=== PATIENT | female | born 1945 | race Caucasian/White ===

== ENCOUNTER 2016-05-02 10:26 | Emergency (ER) | payer OTHER ==
[2016-05-02 10:32] VITALS: O2SAT 94
--- NOTE | 2016-05-02 10:44 | EDPHY ---
H & P Time Seen by Provider: 05/02/16 10:38 HPI/ROS: CHIEF COMPLAINT: Head and neck ache. HISTORY OF PRESENT ILLNESS: The patient is a 71 year old female, that flew in from [place] earlier this week, presenting with left sided head and neck ache that started 3 days ago. Her pain is localized to the left base of her skull and radiates into the left side of her neck. The pain is intermittent. Pain worsened with positioning and tends to be aggravated when sitting at her computer. She took 800mg Ibuprofen this morning. No recent chiropractic work. She denies weakness or numbness in her extremities. No ABRAMS, just pain starting at back of skull and in neck. REVIEW OF SYSTEMS: Aside from elements discussed in the HPI, a comprehensive 10-point review of systems was reviewed and is negative. Past Medical/Surgical History: Denies. Social History: Lives in [place], visiting for work. Smoking Status: Never smoked Physical Exam: General Appearance: Alert, no distress Eyes: Pupils equal and round, no conjunctival pallor or injection ENT, Mouth: Mucous membranes moist Neck: Bilateral paraspinous tenderness and tenderness over the occiput Respiratory: Lungs are clear to auscultation Cardiovascular: Regular rate and rhythm Gastrointestinal: Abdomen is soft and non-tender Neurological: Alert, oriented x3, cranial nerves II through XII intact, motor 5 /5, sensory intact to light touch, normal gait Skin: Warm and dry, no rash Extremities: Nontender, no pedal edema Psychiatric: Mood and affect normal Constitutional: Initial Vital Signs Temperature (C) 36.7 C 05/02/16 10:29 Heart Rate 83 05/02/16 10:29 Respiratory Rate 20 05/02/16 10:29 Blood Pressure 174/111 H 05/02/16 10:29 O2 Sat (%) 94 05/02/16 10:29 O2 Delivery Mode Room Air O2 (L/minute) 2 Allergies/Adverse Reactions: No Known Allergies Allergy (Unverified 05/02/16 10:29) Home Medications: Medication Instructions Recorded Hydrocodone/APAP 5/325 [[place] 1 - 2 tab PO Q4H PRN #15 tab 05/02/16 5/325 (*)] methylPREDNISolone [Medrol Dose 1 each PO AD #1 ea 05/02/16 Isidoro] Medical Decision Making - Diagnostics Imaging: Study: CT of the cervical spine. Indication: Pain. Results: 1. Secondary indicator of underlying cervical muscle spasm. 2. Multilevel degenerative spondylosis and disk disease, most pronounced at C4-C5, C5-C6, and C6-C7 with some variable degrees of central canal neural foraminal stenoses, as above- detailed. The study was read by the radiologist, Dr. Horan. I viewed the images myself on the PACS system. ED Course/Re-evaluation: This pt presents with neck pain, positional in nature, c/w musculoskeletal etiology. No ABRAMS. CT c/w DJD, no acute disk herniation. Will give a Medrol dose pack and [place]. Warning signs discussed. Departure - Departure Disposition: Home, Routine, Self-Care Clinical Impression: Neck pain Condition: Good Instructions: Neck Pain (ED) Additional Instructions: Take Medrol as prescribed. Take Vicodin for severe pain. Followup with your primary care physician when you return home. Referrals: NONE *PRIMARY CARE P,. [Primary Care Provider] - As per Instructions Prescriptions: methylPREDNISolone [Medrol Dose Isidoro] 1 each PO AD #1 ea Hydrocodone/APAP 5/325 [[place] 5/325 (*)] 1 - 2 tab PO Q4H PRN #15 tab PRN Reason: Pain, Moderate Report Scribed for: Kylie Wynne Report Scribed by: Zahira Patrick Date of Report: 05/02/16 Time of Report: 10:45 Physician Review and Approval Statement: 05/02/16 10:45 Portions of this note were transcribed by a medical billing assistant. I personally performed the history, physical exam, and medical decision-making; and confirmed the accuracy of the information in the transcribed note.
--- NOTE | 2016-05-02 11:40 | CT ---
Unenhanced CT Scan of the Cervical Spine Clinical History: 71-year-old female with cervicalgia and cephalgia for 4 days, with no known injury or visual blurring. Technique: A multidetector unenhanced helical CT scan was obtained from the clivus caudally to the T2 -T3 disk interspace, with images reformatted at 1.50 mm increments, and reviewed in soft tissue, bone , and lung windows. The DFOV is 13.6 cm. Parasagittal and paracoronal reconstructed images are review ed on the workstation. A dose reduction protocol was used. Comparison study: None. Findings: There is slight straightening of the normal cervical lordosis, which may be secondary to re cumbent positioning or reflect some underlying muscle spasm. The vertebral body heights are maintaine d. There are ventral traction osteophytes from C3 through T1, and dorsal traction osteophytes from C4 through C7. There is some mild degenerative disk space narrowing at C4-C5, C5-C6, and C6-C7. There i s no acute fracture or facet malalignment. The craniocervical junction appears normal, the atlantoaxi al alignment is maintained, and the base and the tip of the dens are normal. There is no central stephanie l stenosis, prevertebral hematoma, or dorsal epidural hematoma. The visualized infra- and the suprate ntorial structures are age-appropriate. The visualized prevertebral soft tissues are normal. There is some mild biapical pleural-parenchymal fibrosis. At the C2-C3 level, there is mild bilateral facet hypertrophy. There is no central canal or neural fo raminal stenosis. A tiny inconsequential disk bulge is seen. At the C3-C4 level, there is no central canal or neural foraminal stenosis. At the C4-C5 level, there is degenerative spondylosis and some disk space narrowing. Mild bilateral f acet hypertrophy is seen, left greater than right, and there is an uncovertebral osteophyte on the ri ght side resulting in moderate right neural foraminal stenosis. A dorsal disk osteophyte complex resu lts in mild central canal stenosis. The left neural foramen and left lateral recess are patent. At the C5-C6 level, there is degenerative disk space narrowing with ventral and dorsal traction osteo phytes. There is mild central canal stenosis, with some mild narrowing of the right lateral recess. U ncovertebral osteophytes result in mild left and moderate right neural foraminal stenosis. At the C6-C7 level, there is degenerative disk space narrowing with ventral and dorsal traction osteo phytes. Uncovertebral osteophytes and some facet hypertrophy results in moderate bilateral neural for aminal stenosis. There is a dorsal disk osteophyte complex, resulting in mild central canal stenosis. At the C7-T1 level, there is severe right-sided facet hypertrophy. The central canal and neural shiv leatha remain patent. Impression: 1. Secondary indicator of underlying cervical muscle spasm. 2. Multilevel degenerative spondylosis and disk disease, most pronounced at C4-C5, C5-C6, and C6-C7 w ith some variable degrees of central canal neural foraminal stenoses, as above-detailed. Results were conveyed to Dr. Steph Wynne. If there is further clinical concern regarding the patient's cervicalgia, MR imaging could be conside red. A test result has been communicated to a licensed care provider and documented in [employer], 11:27:42 A M, 05/02/2016, [employer] Message ID [id number].
[2016-05-02 11:54] VITALS: BP 169/108; PULSE 72; RESP 18; TEMP 98.2
== END 2016-05-02 11:54 | disposition home or self-care (01) ==
DX: M54.2 Cervicalgia (principal)